=== PATIENT | male | born 1945 | race Caucasian/White ===

== ENCOUNTER 2017-04-15 15:01 | Emergency (ER) | payer MEDICARE, BC ==
--- NOTE | 2017-04-15 15:25 | Emergency Department Record ---
History of Present Illness - General Chief Complaint: Abdominal Pain Stated Complaint: PAIN IN LOWER ABD Time Seen by Provider: 04/15/17 15:20 Source: Patient Mode of Arrival: Ambulatory Limitations: No limitations - History of Present Illness Initial Comments: 71 yo male presents to ED with a CC of right inguinal pain for the past 1 month. Patient reports that his pain symptoms worsened today. Patient denies fevers, chills, or testicular swelling/pain symptoms. Patient reports recent partial colectomy for colon cancer, did not require chemo/radiation. MD Complaint: Abdominal pain Onset/Timin -: Month(s) Location: RLQ Radiation: None Quality: Aching, Sharp, Stabbing Consistency: Constant Improves With: Medication Worsens With: Movement Associated Symptoms: Denies other symptoms - Related Data Home Medications Medication Instructions Recorded Confirmed Last Taken Aspirin Chewable [Aspirin] 81 mg PO DAILY 05/30/14 04/15/17 04/14/17 Atenolol [Atenolol] 50 mg PO DAILY 05/30/14 04/15/17 04/14/17 Clopidogrel Bisulfate [Plavix] 75 mg PO DAILY 05/30/14 04/15/17 04/15/17 Fish Oil/Dha/Epa [Fish Oil 1,200 1,400 mg PO DAILY 05/30/14 04/15/17 04/15/17 mg Fish Oil] Fluoxetine HCl [Prozac] 20 mg PO DAILY 05/30/14 04/15/17 04/15/17 Lisinopril [Lisinopril] 20 mg PO DAILY 05/30/14 04/15/17 04/14/17 Metformin HCl [Glucophage] 500 mg PO BID 05/30/14 04/15/17 04/15/17 Pravastatin Sodium [Pravachol] 40 mg PO DAILY 05/30/14 04/15/17 04/14/17 Allergies Allergy/AdvReac Type Severity Reaction Status Date / Time cyclobenzaprine HCl Allergy Severe ANAPHYLAXIS Verified 08/28/15 18:10 [From Flexeril] Carbapenems Allergy Intermediate RASH Verified 08/28/15 18:10 Cephalosporins Allergy Intermediate RASH Verified 08/28/15 18:10 Penicillins Allergy Intermediate RASH Verified 08/28/15 18:10 Sulfa (Sulfonamide Allergy Intermediate RASH Verified 08/28/15 18:10 Antibiotics) sulfacetamide Allergy Intermediate RASH Verified 08/28/15 18:10 Travel Screening - Travel/Exposure Within Last 30 Days Have you traveled within the last 30 days?: No - Travel/Exposure Within Last Year Have you traveled outside the [place] in the last year?: No - Additonal Travel Details Have you been exposed to anyone with a communicable illness?: No Review of Systems Constitutional: Denies: Chills, Fever, Malaise, Night sweats Eyes: Denies: Eye discharge, Eye pain ENT: Denies: Congestion, Ear pain, Epistaxis Respiratory: Denies: Cough, Dyspnea Cardiovascular: Denies: Chest pain, Dyspnea on exertion Endocrine: Denies: Fatigue, Heat or cold intolerance Gastrointestinal: Reports: Abdominal pain. Denies: Nausea, Vomiting Genitourinary: Denies: Incontinence, Retention, Testicular pain, Testicular mass Musculoskeletal: Denies: Arthralgia, Back pain, Gout, Joint swelling Skin: Denies: Bruising, Change in color Neurological: Denies: Abnormal gait, Confusion, Headache Psychiatric: Denies: Anxiety Hematological/Lymphatic: Denies: Anemia, Blood Clots Past Medical History - SOCIAL HISTORY Smoking Status: Former smoker Alcohol Use: None Drug Use: None - RESPIRATORY Hx Respiratory Disorders: Yes - CARDIOVASCULAR Hx Cardio Disorders: Yes Hx Abnormal EKG: Yes Hx Cardiac Cath: Yes Hx Chest Pain: Yes Hx Heart Attack: Yes (2) Hx Hypertension: Yes Hx Palpitations: Yes Hx Vascular Disease: Yes Hx Coronary Stent: Yes (x 8, last stent 11/2016) Comment:: AAA 2000, high cholesterol - NEURO Hx Neuro Disorders: Yes 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) - GI Hx GI Disorders: Yes Hx GI Bleed: Yes Hx of Polyps: Yes Comment:: colon cancer 2015 - Hx Genitourinary Disorders: Yes Hx Kidney Stones: Yes - ENDOCRINE Hx Endocrine Disorders: Yes Hx Diabetes: Yes (Type II) Hx Thyroid Disease: No Comment:: Blindness occurred after multiple hernia repair sx; stroke to both eyes - MUSCULOSKELETAL Hx Musculoskeletal Disorders: Yes Hx Arthritis: Yes Hx Back Injury: Yes - PSYCH Hx Psych Problems: Yes Hx Anxiety: Yes - HEMATOLOGY/ONCOLOGY Hx Hematology/Oncology Disorders: Yes Hx Bruising: Yes (plavix) Hx Cancer: Yes Family Medical History Any Significant Family History?: No Hx Heart Disease: Brother/Sister *Heart Comment: lost 3 siblings due to aaa Physical Exam - General General Appearance: Alert, Oriented x3, Cooperative, Moderate distress Limitations: No limitations - Head Head exam: Atraumatic, Normocephalic, Normal inspection Head exam detail: negative: Abrasion, Contusion, Flor's sign, General tenderness, Hematoma, Laceration - Eye Eye exam: Normal appearance. negative: Conjunctival injection, Periorbital swelling, Periorbital tenderness, Scleral icterus - ENT Ear exam: negative: Auricular hematoma, Auricular trauma Nasal Exam: negative: Active bleeding, Discharge, Dried blood, Foreign body Mouth exam: negative: Drooling, Laceration, Muffled voice, Tongue elevation - Neck Neck exam: Normal inspection. negative: Meningismus, Tenderness - Respiratory Respiratory exam: Normal lung sounds bilaterally. negative: Respiratory distress, Rhonchi, Stridor, Wheezes - Cardiovascular Cardiovascular Exam: Regular rate, Normal rhythm, Normal heart sounds - GI/Abdominal GI/Abdominal exam: Soft, Tenderness (TTP to the right inguinal region on examination, no rebound, no guarding present). negative: Rebound, Rigid - Rectal Rectal exam: Deferred - exam: Deferred - Extremities Extremities exam: Normal inspection. negative: Pedal edema, Tenderness - Back Back exam: Denies: CVA tenderness (R), CVA tenderness (L) - Neurological Neurological exam: Alert, Oriented X3 - Psychiatric Psychiatric exam: Normal affect, Normal mood - Skin Skin exam: Normal color. negative: Abrasion Type of lesion: negative: abrasion Course Vital Signs 04/15/17 15:03 Temperature 98.4 F Pulse Rate 92 H Respiratory 20 Rate Blood Pressure 149/95 Pulse Ox 100 - Reevaluation(s) Reevaluation #1: 04/15/17 16:47 Labs reviewed and are grossly unremarkable for an acute process. Reevaluation #2: 04/15/17 17:01 CT Pelvis: Lipoma in the spermatic cord vs. small hernia sac in the right inguinal canal Patient and family were updated on all results, patient reports that he is pain- free at rest and takes Aleve for his symptoms, denies the need for further analgesia on examination. Patient reports that Dr. Hickman performed his cony- colectomy, will have the patient follow-up in the [facility] next Wednesday for further evaluation. Medical Decision Making - Lab Data Result diagrams: 04/15/17 15:28 04/15/17 15:28 Disposition Disposition: Discharge Clinical Impression: Inguinal hernia Qualifiers: Obstruction and gangrene presence: without obstruction or gangrene Laterality: unilateral Recurrence: not specified as recurrent Qualified Code(s): K40.90 - Unilateral inguinal hernia, without obstruction or gangrene, not specified as recurrent Disposition: Home, Self-Care Condition: (2) Stable Instructions: Inguinal Hernia (ED) Additional Instructions: Return to ED if your symptoms worsen or if you have any concerns. Follow-up with Dr. Hickman in the [facility] next Wednesday. Referrals: Low Hickman [DOCTOR OF OSTEOPATH] - [facility] [Provider Group] Forms: Patient Portal Access Time of Disposition: 17:04
[2017-04-15 15:35] LABS: BASO % 0.5 % (0-6); EOS % 1.8 % (0-6); GRAN % 63.1 % (47-80); HEMATOCRIT 37.4 % (42.0-52.0); HEMOGLOBIN 11.9 gm/dl (14.0-18.0); LYMPH % 25.5 % (16-45); MEAN CORPUSCULAR HEMOGLOBIN 29.8 pg (27-33); MEAN CORPUSCULAR HGB CONC 31.8 g/dl (32-36); MEAN PLATELET VOLUME 8.8 fl (7.4-10.4); MONO % 9.1 % (0-9); PLATELET COUNT 260 K/uL (130-400); RED BLOOD COUNT 3.98 M/uL (4.40-5.70); RED CELL DISTRIBUTION WIDTH 13.9 % (11.5-14.5); WHITE BLOOD COUNT W/O DIFF 5.6 K/uL (4.2-12.2)
[2017-04-15 15:51] LABS: LACTIC ACID 1.6 mmol/L (0.7-2.1)
[2017-04-15 16:10] LABS: BLOOD UREA NITROGEN 12 mg/dL (9-20); CREATININE 0.9 mg/dL (0.66-1.25); EST GLOMERULAR FILTRATION RATE > 60 ml/min; GLUCOSE,RANDOM 115 mg/dL (70-110)
[2017-04-15 16:12] LABS: ALB/GLOB RATIO 1.5 (1.1-1.8); ALBUMIN 4.3 gm/dL (3.5-5.0); ALKALINE PHOSPHATASE 85 U/L (38-126); ALT/SGPT 92 U/L (21-72); AST/SGOT 67 U/L (17-59); TOTAL PROTEIN 7.2 gm/dL (6.3-8.2)
--- NOTE | 2017-04-17 14:06 | CT SCAN REPORT ---
DATE: 04/15/2017 at 16:22. EXAM: CT SCAN OF THE PELVIS WITH CONTRAST. HISTORY: Right inguinal pain. TECHNIQUE: Contrast-enhanced helical CT examination of the pelvis is performed with 95 mL of Omnipaque 300 utilized. Oral contrast was not utilized. COMPARISON: CT of the abdomen and pelvis without and with contrast dated 2015. FINDINGS: The prostate gland is grossly normal in size. No intrinsic urinary bladder abnormality is seen. The distal ureters are not dilated. No definite intrapelvic mass nor adenopathy is seen. There is diffuse atherosclerosis redemonstrated. There is again noted mild dilatation of the right common iliac artery with eccentric thrombus present. This measures approximately 2.1 cm in maximum diameter, unchanged. There is again noted minor ulceration at this level, the pattern of which is unchanged. No gross dilatation or wall thickening are visualized. Bowel is seen, though evaluation is somewhat limited by lack of oral contrast utilization. There is suggestion of an enterocolic anastomosis in the right mid to upper abdomen. Postsurgical changes are suggested in the midline abdominal wall. There is mild fat density prominence within the right inguinal canal consistent with fat within a small inguinal hernia or a lipoma of the spermatic cord. No inflammatory changes are, however, demonstrated in this region. No new lytic or blastic bone lesion. Degenerative changes of the lower lumbar spine are redemonstrated. IMPRESSION: 1. MILD FAT DENSITY PROMINENCE IN THE RIGHT INGUINAL CANAL CONSISTENT WITH SPERMATIC CORD LIPOMA OR FAT WITHIN A SMALL INGUINAL HERNIA SAC. THERE IS NO ASSOCIATED FAT STRANDING OR ABNORMAL FLUID COLLECTION IN THIS REGION. 2. ENTEROCOLIC ANASTOMOSIS DEMONSTRATED IN THE RIGHT MID TO UPPER ABDOMEN APPEARING UNCOMPLICATED. 3. ATHEROSCLEROSIS. MILD ANEURYSMAL DILATATION OF THE RIGHT COMMON ILIAC ARTERY IS REDEMONSTRATED, NOT SIGNIFICANTLY CHANGED IN SIZE MEASURING 2.1 CM. MINOR PLAQUE ULCERATION AT THIS LEVEL APPEARS STABLE. JOB NUMBER: [id number] MTDD
== END 2017-04-15 17:14 | disposition home or self-care (01) ==
LOC: ER 15:01
DX: K40.90 Unilateral inguinal hernia, without obstruction or gangrene, not specified as recurrent (principal); R10.31 Right lower quadrant pain; Z85.038 Personal history of other malignant neoplasm of large intestine; Z87.442 Personal history of urinary calculi
CPT/HCPCS: 99283; 99284; 83605; 85025; 80053; 72193; Q9967

== ENCOUNTER 2017-04-26 10:29 | Day surgery (SDC) | payer MEDICARE, BC ==
[2017-04-26] MEDS ORDERED: LIDOCAINE 2% MDV (20MG/ML) 20ML VIAL IV ONE (14:00)
[2017-04-26] MEDS ORDERED: MIDAZOLAM HCL 2MG/2ML VIAL IV ONE (14:00)
[2017-04-26] MEDS ORDERED: PROPOFOL 10 MG/ML VIAL IV ONE (14:00)
--- NOTE | 2017-04-28 14:24 | Operative Note ---
DATE OF SURGERY: 04/26/2017 PREOPERATIVE DIAGNOSIS: See below. POSTOPERATIVE DIAGNOSIS: See below. OPERATION: COLONOSCOPY to the neoterminal ileum with biopsy. Indication: Recent history of adenocarcinoma involving the right colon. Patient is status post resection. He has been found to have ongoing anemia, which has been worsening of late, and the cause for this is being evaluated. He is also scheduled to have herniorrhaphy next week. Surveillance colonoscopy is being performed. Anesthesia: Intravenous sedation was administered by the Department of Anesthesiology and included Diprivan titrated to effect. PROCEDURE: Following informed consent from this alert individual, including a discussion of the risks and benefits of the procedure and an opportunity for the patient to ask questions, patient was placed in the left lateral decubitus position. A digital rectal examination was performed. No abnormalities were noted. Following this, the Olympus [id number] video colonoscope was inserted into the rectum without resistance. The rectal mucosa had a normal appearance, with normal folds and distensibility. Colonoscope was advanced up through the colon to the neoterminal ileum. There was anastomosis noted in the right colon, presumably in the distal ascending colon. The neoterminal ileum was endoscopically normal. The anastomotic site itself appeared normal as well. Approximately 10 cm from the anastomosis was an area of abnormal mucosa with inflammation and somewhat firm texture. The tissue was quite friable. Biopsies from the site were obtained, as there was some concern for malignancy. The area extended over at least 3 cm. From this point, the colonoscope was then further withdrawn. No additional abnormalities were detected. Retroflexion of the rectum was endoscopically unremarkable. Patient tolerated the procedure well. The colon preparation was good. IMPRESSION: Area of abnormal mucosa in the colon, approximating the level of the hepatic flexure, approximately 7 cm from the previous anastomosis, suspicious for possible malignancy; although, inflammation is also a consideration. The area was biopsied. The remainder of the colon and neoterminal ileum was unremarkable. RECOMMENDATIONS: Further recommendations will be forthcoming pending results of biopsy. I discussed my findings at this time with Dr. Hickman. As always, thank you for allowing me to participate in the care of your patient. CC: Marlys Gallagher M.D. Jeffrey Deppen, D.O. MTDD
== END 2017-04-26 17:17 | disposition home or self-care (01) ==
LOC: HOP 10:29
PROVIDERS: ATTEND Internal Medicine Gastroenterology
DX: C18.3 Malignant neoplasm of hepatic flexure (principal); E11.9 Type 2 diabetes mellitus without complications; Z79.84 Long term (current) use of oral hypoglycemic drugs; E78.00 Pure hypercholesterolemia, unspecified; I10 Essential (primary) hypertension; I69.898 Other sequelae of other cerebrovascular disease

== ENCOUNTER 2018-05-23 08:33 | Day surgery (SDC) | payer MEDICARE, BC ==
[2018-05-23] MEDS ORDERED: PROPOFOL 10 MG/ML VIAL IV ONE (08:34)
[2018-05-23] MEDS ORDERED: LIDOCAINE 2% MDV (20MG/ML) 20ML VIAL IV ONE (08:34)
--- NOTE | 2018-05-25 10:00 | Operative Note ---
DATE OF SURGERY: 05/23/2018 OPERATION: COLONOSCOPY to the terminal ileum with multiple biopsies. INDICATION: Prior history of colon carcinoma on 2 occasions, status post right colon resection. The patient returns at this time for surveillance. His last colonoscopy was in 2017. ANESTHESIA: Intravenous sedation was administered by the department of anesthesiology and included Diprivan titrated to effect. PROCEDURE: Following informed consent from this alert individual including a discussion of the risks and benefits of the procedure and an opportunity for the patient to ask questions, the patient was in the left lateral decubitus position. A digital rectal examination was performed. No abnormalities were noted. Following this, the Olympus [id number] video colonoscope was inserted into the rectum without resistance. The rectal mucosa had a normal appearance with normal folds and distensibility. The colonoscope was advanced up through the colon to the level of the small bowel anastomosis without difficulty. Throughout the bowel the mucosa appeared normal, the folds were normal, and the bowel was fairly well distensible. The colon preparation was good. The anastomotic site appeared to be healthy. There was end-to-side anastomosis with the terminal ileum. The terminal ileum was then cannulated and demonstrated some focal areas of erythema with edema and superficial erosions. Multiple biopsies were taken from the terminal ileum. From the anastomotic site, the colonoscope was then withdrawn. No mucosal abnormalities were detected. However, because of the patient's complaint of frequent diarrhea, random biopsies were taken from the remaining colon in a random fashion to evaluate for microscopic colitis although this seemed less likely clinically. The endoscope was then drawn back into the rectum where retroflexion was accomplished following air insufflation and failed to demonstrate changed. Retroflexion was also accomplished at the anastomotic site without abnormalities noted. The instrument was removed. The patient tolerated the procedure well and was returned to the recovery area in stable condition. IMPRESSION: 1. Status post right colon resection with healthy-appearing ileocolonic end-to-side anastomosis. 2. Mild ileitis with focal areas of edema, erythema, and superficial erosive change, biopsies taken. 3. Normal residual colon, random biopsies taken. RECOMMENDATIONS: Further recommendations will be forthcoming pending results of pathology obtained today. The patient can use Imodium on an as-needed basis at this time. I did recommend a recheck colonoscopy in 1 year's time for history of 2 separate adenocarcinomas of the colon. Followup will also be with Dr. Pike. As always, thank you for allowing me to participate in the care of your patient. CC: Dr. Shahzad Hickman, DO [facility]
== END 2018-05-23 10:27 | disposition home or self-care (01) ==
LOC: HOP 08:33
PROVIDERS: ATTEND Internal Medicine Gastroenterology
DX: Z09 Encounter for follow-up examination after completed treatment for conditions other than malignant neoplasm (principal); Z85.030 Personal history of malignant carcinoid tumor of large intestine; Z98.890 Other specified postprocedural states; K52.9 Noninfective gastroenteritis and colitis, unspecified; E78.00 Pure hypercholesterolemia, unspecified; E11.9 Type 2 diabetes mellitus without complications; I10 Essential (primary) hypertension

== ENCOUNTER 2018-07-23 18:00 | Emergency (ER) | payer MEDICARE, BC ==
--- NOTE | 2018-07-23 18:54 | Emergency Department Record ---
History of Present Illness - General Chief complaint: Pain Stated complaint: LT SHOULDER AND NECK PAIN Time Seen by Provider: 07/23/18 18:34 Source: Patient, Family Mode of Arrival: Ambulatory Limitations: No limitations - History of Present Illness Initial comments: pt has been having l shoulder pain for a week. he is unsure of the etiology. it is constant but gets worse w movement. it radiates up into his posterior neck. no cp, sob or nausea.. alleve makes it better MD Complaint: Extremity pain, Joint pain, Neck Pain Onset/Timin -: Week(s) Location: Left, Shoulder Severity scale (1-10): 2 Quality: Aching Consistency: Constant, Intermittent Improves with: Rest Worsens with: Exertion, Palpation Associated Symptoms: Denies other symptoms - Related Data Allergies Allergy/AdvReac Type Severity Reaction Status Date / Time cyclobenzaprine HCl Allergy Severe ANAPHYLAXIS Verified 07/23/18 18:12 [From Flexeril] Carbapenems Allergy Intermediate RASH Verified 07/23/18 18:12 Cephalosporins Allergy Intermediate RASH Verified 07/23/18 18:12 Penicillins Allergy Intermediate RASH Verified 07/23/18 18:12 Sulfa (Sulfonamide Allergy Intermediate RASH Verified 07/23/18 18:12 Antibiotics) sulfacetamide Allergy Intermediate RASH Verified 07/23/18 18:12 Travel Screening - Travel/Exposure Within Last 30 Days Have you traveled within the last 30 days?: No - Travel/Exposure Within Last Year Have you traveled outside the [place] in the last year?: No - Additonal Travel Details Have you been exposed to anyone with a communicable illness?: No - Travel Symptoms Symptom Screening: None Review of Systems Reviewed: No additional complaints except as noted below Constitutional: Reports: As per HPI. Denies: Chills, Fever, Malaise, Night sweats, Weakness, Weight change Eyes: Reports: As per HPI, Vision change. Denies: Eye discharge, Eye pain, Photophobia ENT: Reports: As per HPI. Denies: Congestion, Dental pain, Ear pain, Epistaxis , Hearing loss, Throat pain Respiratory: Reports: As per HPI. Denies: Cough, Dyspnea, Hemoptysis, Stridor, Wheezes Cardiovascular: Reports: As per HPI. Denies: Arrhythmia, Chest pain, Dyspnea on exertion, Edema, Murmurs, Orthopnea, Palpitations, Paroxysmal nocturnal dyspnea, Rheumatic Fever, Syncope Endocrine: Reports: As per HPI. Denies: Fatigue, Heat or cold intolerance, Polydipsia, Polyuria Gastrointestinal: Reports: As per HPI. Denies: Abdominal pain, Constipation, Diarrhea, Hematemesis, Hematochezia, Melena, Nausea, Vomiting Genitourinary: Reports: As per HPI. Denies: Dysuria, Frequency, Hematuria, Incontinence, Retention, Testicular pain, Testicular mass, Urgency Musculoskeletal: Reports: As per HPI, Myalgia, Neck pain. Denies: Arthralgia, Back pain, Gout, Joint swelling Skin: Reports: As per HPI. Denies: Bruising, Change in color, Change in hair/ nails, Lesions, Pruritus, Rash Neurological: Reports: As per HPI. Denies: Abnormal gait, Confusion, Headache, Numbness, Paresthesias, Seizure, Tingling, Tremors, Vertigo, Weakness Psychiatric: Reports: As per HPI. Denies: Anxiety, Auditory hallucinations, Depression, Homicidal thoughts, Suicidal thoughts, Visual hallucinations Hematological/Lymphatic: Reports: As per HPI. 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) Comment:: legally blind - GI Hx GI Disorders: Yes Hx GI Bleed: Yes Comment:: colon cancer 2016 - Hx Genitourinary Disorders: Yes Hx Kidney Stones: Yes - ENDOCRINE Hx Endocrine Disorders: Yes Hx Diabetes: Yes (Type II) - MUSCULOSKELETAL Hx Musculoskeletal Disorders: Yes Hx Arthritis: Yes Hx Back Injury: Yes - PSYCH Hx Psych Problems: Yes Hx Anxiety: Yes - HEMATOLOGY/ONCOLOGY Hx Hematology/Oncology Disorders: Yes Hx Cancer: Yes Family Medical History Any Significant Family History?: Yes Hx Heart Disease: Brother/Sister *Heart Comment: lost 3 siblings due to aaa Physical Exam - General General Appearance: Alert, Oriented x3, Cooperative, Mild distress - Head Head exam: Normal inspection - Eye Eye exam: Normal appearance, PERRL, EOMI Pupils: Normal accommodation - ENT ENT exam: Normal exam, Mucous membranes moist, Normal external ear exam, Normal orophraynx, TM's normal bilaterally Ear exam: Normal external inspection. negative: External canal tenderness Nasal Exam: Normal inspection. negative: Discharge, Sinus tenderness Mouth exam: Normal external inspection, Tongue normal Teeth exam: Normal inspection. negative: Dental caries Throat exam: Normal inspection. negative: Tonsillar erythema, Tonsillar exudate - Neck Neck exam: Normal inspection, Full ROM. negative: Tenderness - Respiratory Respiratory exam: Normal lung sounds bilaterally. negative: Respiratory distress - Cardiovascular Cardiovascular Exam: Regular rate, Normal rhythm, Normal heart sounds - GI/Abdominal GI/Abdominal exam: Soft, Normal bowel sounds. negative: Tenderness - Rectal Rectal exam: Deferred - exam: Deferred - Extremities Extremities exam: Normal capillary refill, Tenderness (l shoulder and trapezius and neck). negative: Full ROM (l shoulder) - Back Back exam: Reports: Normal inspection, Full ROM. Denies: Muscle spasm, Rash noted, Tenderness - Neurological Neurological exam: Alert, CN II-XII intact, Normal gait, Oriented X3 - Psychiatric Psychiatric exam: Normal affect, Normal mood - Skin Skin exam: Dry, Intact, Normal color, Warm Course Vital Signs 07/23/18 18:02 Temperature 98.2 F Pulse Rate 76 Respiratory 16 Rate Blood Pressure 152/85 Pulse Ox 96 Medical Decision Making - Lab Data Result diagrams: 07/23/18 18:55 07/23/18 18:55 Disposition Disposition: Discharge Clinical Impression: Rotator cuff (capsule) sprain Qualifiers: Encounter type: initial encounter Laterality: left Qualified Code(s): S43.422A - Sprain of left rotator cuff capsule, initial encounter Disposition: Home, Self-Care Condition: (1) Good Instructions: Rotator Cuff Tendinitis (ED) Additional Instructions: follow up with dr meadows on wednesday. return sooner if worse. motrin with food. moist heat Referrals: MJ MEADOWS [DOCTOR OF OSTEOPATH] - [facility] [Provider Group] Forms: Patient Portal Access Quality - Quality Measures Quality Measures: N/A - Blood Pressure Screening Does Patient Have Any of the Following: No Blood Pressure Classification: Pre-Hypertensive BP Reading Systolic Measurement: 152 Diastolic Measurement: 85 Screening for High Blood Pressure: < Pre-Hypertensive BP, F/U Documented > [ [id number]] Pre-Hypertensive Follow-up Interventions: Follow-up with rescreen every year.
[2018-07-23 19:03] LABS: BASO % 0.4 % (0-6); EOS % 2.8 % (0-6); GRAN % 61.3 % (47-80); HEMATOCRIT 49.6 % (42.0-52.0); MEAN CELL VOLUME 93.2 fl (81-97); MEAN CORPUSCULAR HGB CONC 34.3 g/dl (32-36); MEAN PLATELET VOLUME 9.5 fl (7.4-10.4); MONO % 8.5 % (0-9); PLATELET COUNT 189 K/uL (130-400); RED BLOOD COUNT 5.32 M/uL (4.40-5.70); RED CELL DISTRIBUTION WIDTH 13.8 % (11.5-14.5); WHITE BLOOD COUNT W/O DIFF 6.8 K/uL (4.2-12.2)
[2018-07-23 19:14] LABS: BLOOD UREA NITROGEN 13 mg/dL (8-23)
[2018-07-23 19:15] LABS: CREATININE 0.7 mg/dL (0.7-1.2); EST GLOMERULAR FILTRATION RATE > 60 mL/min
[2018-07-23 19:17] LABS: GLUCOSE,RANDOM 130 mg/dL (74-109)
[2018-07-23 19:20] LABS: CREATINE PHOSPHOKINASE 120 U/L (39-308)
[2018-07-23 19:22] LABS: CKMB 3.2 ng/mL (<6.73)
[2018-07-23 19:36] LABS: ERYTHROCYTE SEDIMENTATION RATE 7 mm/hr (0-20)
[2018-07-23] MEDS: KETOROLAC 30 MG/ML VIAL IVP ONE (20:26)
--- NOTE | 2018-07-23 21:07 | Emergency Department Record ---
History of Present Illness - General Chief complaint: Pain Stated complaint: LT SHOULDER AND NECK PAIN Time Seen by Provider: 07/23/18 18:34 Source: Patient, Family Mode of Arrival: Ambulatory Limitations: No limitations - History of Present Illness Onset/Timin -: Week(s) Location: Left, Shoulder Severity scale (1-10): 2 Quality: Aching Consistency: Constant, Intermittent Improves with: Rest Worsens with: Exertion, Palpation Associated Symptoms: Denies other symptoms - Related Data Previous Rx's Medication Instructions Recorded Lidocaine Patch [Lidoderm] 1 ea TOP ASDIR #5 patch 07/23/18 Allergies Allergy/AdvReac Type Severity Reaction Status Date / Time cyclobenzaprine HCl Allergy Severe ANAPHYLAXIS Verified 07/23/18 18:12 [From Flexeril] Carbapenems Allergy Intermediate RASH Verified 07/23/18 18:12 Cephalosporins Allergy Intermediate RASH Verified 07/23/18 18:12 Penicillins Allergy Intermediate RASH Verified 07/23/18 18:12 Sulfa (Sulfonamide Allergy Intermediate RASH Verified 07/23/18 18:12 Antibiotics) sulfacetamide Allergy Intermediate RASH Verified 07/23/18 18:12 Travel Screening - Travel/Exposure Within Last 30 Days Have you traveled within the last 30 days?: No - Travel/Exposure Within Last Year Have you traveled outside the [place] in the last year?: No - Additonal Travel Details Have you been exposed to anyone with a communicable illness?: No - Travel Symptoms Symptom Screening: None Review of Systems Constitutional: Reports: As per HPI. Denies: Chills, Fever, Malaise, Night sweats, Weakness, Weight change Eyes: Reports: As per HPI, Vision change. Denies: Eye discharge, Eye pain, Photophobia ENT: Reports: As per HPI. Denies: Congestion, Dental pain, Ear pain, Epistaxis , Hearing loss, Throat pain Respiratory: Reports: As per HPI. Denies: Cough, Dyspnea, Hemoptysis, Stridor, Wheezes Cardiovascular: Reports: As per HPI. Denies: Arrhythmia, Chest pain, Dyspnea on exertion, Edema, Murmurs, Orthopnea, Palpitations, Paroxysmal nocturnal dyspnea, Rheumatic Fever, Syncope Endocrine: Reports: As per HPI. Denies: Fatigue, Heat or cold intolerance, Polydipsia, Polyuria Gastrointestinal: Reports: As per HPI. Denies: Abdominal pain, Constipation, Diarrhea, Hematemesis, Hematochezia, Melena, Nausea, Vomiting Genitourinary: Reports: As per HPI. Denies: Dysuria, Frequency, Hematuria, Incontinence, Retention, Testicular pain, Testicular mass, Urgency Musculoskeletal: Reports: As per HPI, Myalgia, Neck pain. Denies: Arthralgia, Back pain, Gout, Joint swelling Skin: Reports: As per HPI. Denies: Bruising, Change in color, Change in hair/ nails, Lesions, Pruritus, Rash Neurological: Reports: As per HPI. Denies: Abnormal gait, Confusion, Headache, Numbness, Paresthesias, Seizure, Tingling, Tremors, Vertigo, Weakness Psychiatric: Reports: As per HPI. Denies: Anxiety, Auditory hallucinations, Depression, Homicidal thoughts, Suicidal thoughts, Visual hallucinations Hematological/Lymphatic: Reports: As per HPI. 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) Comment:: legally blind - GI Hx GI Disorders: Yes Hx GI Bleed: Yes Comment:: colon cancer 2016 - Hx Genitourinary Disorders: Yes Hx Kidney Stones: Yes - ENDOCRINE Hx Endocrine Disorders: Yes Hx Diabetes: Yes (Type II) - MUSCULOSKELETAL Hx Musculoskeletal Disorders: Yes Hx Arthritis: Yes Hx Back Injury: Yes - PSYCH Hx Psych Problems: Yes Hx Anxiety: Yes - HEMATOLOGY/ONCOLOGY Hx Hematology/Oncology Disorders: Yes Hx Cancer: Yes Family Medical History Any Significant Family History?: Yes Hx Heart Disease: Brother/Sister *Heart Comment: lost 3 siblings due to aaa Physical Exam - General Limitations: No limitations Course Vital Signs 07/23/18 07/23/18 18:02 20:51 Temperature 98.2 F Pulse Rate 76 Pulse Rate [ 74 Pulse Ox Probe] Respiratory 16 20 Rate Blood Pressure 152/85 Blood Pressure 131/85 [Left Arm] Pulse Ox 96 97 Medical Decision Making - Lab Data Result diagrams: 07/23/18 18:55 07/23/18 18:55 Lab Results 07/23/18 07/23/18 07/23/18 Range/Units 18:48 18:55 18:55 WBC 6.8 (4.2-12.2) K/uL RBC 5.32 (4.40-5.70) M/uL Hgb 17.0 (14.0-18.0) gm/dl Hct 49.6 (42.0-52.0) % MCV 93.2 (81-97) fl MCH 32.0 (27-33) pg MCHC 34.3 (32-36) g/dl RDW 13.8 (11.5-14.5) % Plt Count 189 (130-400) K/uL MPV 9.5 (7.4-10.4) fl Gran % 61.3 (47-80) % Lymphocytes % 27.0 (16-45) % Monocytes % 8.5 (0-9) % Eosinophils % 2.8 (0-6) % Basophils % 0.4 (0-6) % ESR 7 (0-20) mm/hr Sodium Cancelled 142 Potassium Cancelled 4.3 Chloride Cancelled 100 Carbon Dioxide Cancelled 27.0 Anion Gap Cancelled 15.0 BUN Cancelled 13 Creatinine Cancelled 0.7 Estimated GFR Cancelled > 60 Random Glucose Cancelled 130 H Calcium Cancelled 9.7 Creatine Kinase 120 (39-308) U/L CK-MB (CK-2) 3.2 (<6.73) ng/mL Troponin T < 0.010 (0-0.010) ng/mL Disposition Clinical Impression: Rotator cuff (capsule) sprain Qualifiers: Encounter type: initial encounter Laterality: left Qualified Code(s): S43.422A - Sprain of left rotator cuff capsule, initial encounter Disposition: Home, Self-Care Condition: (1) Good Instructions: Rotator Cuff Tendinitis (ED) Additional Instructions: follow up with dr meadows on wednesday. return sooner if worse. motrin with food. moist heat Prescriptions: Lidocaine Patch [Lidoderm] 1 ea TOP ASDIR #5 patch Referrals: [facility] [Provider Group] MJ MEADOWS [DOCTOR OF OSTEOPATH] - Forms: Patient Portal Access Quality - Quality Measures Quality Measures: N/A - Blood Pressure Screening Does Patient Have Any of the Following: No Blood Pressure Classification: Pre-Hypertensive BP Reading Systolic Measurement: 152 Diastolic Measurement: 85 Screening for High Blood Pressure: < Pre-Hypertensive BP, F/U Documented > [ [id number]] Pre-Hypertensive Follow-up Interventions: Follow-up with rescreen every year.
[2018-07-23] MEDS: LIDOCAINE 5% PATCH TOP ONE (21:09)
--- NOTE | 2018-07-27 09:18 | RADIOLOGY REPORT ---
EXAM: CHEST, TWO VIEWS HISTORY: PAIN. TECHNIQUE: PA and lateral views of the chest were obtained. Comparison: Two view chest 11/20/11. FINDINGS: Since the prior exam a dual lead pacemaker has been placed with one electrode lead in the region of the right atrium and the other in the region of the right ventricle. No pneumothorax evident. Mild torsion of the aorta. The heart size is normal. The lungs appear expanded with no acute infiltrate seen. Minor linear fibrosis or discoid atelectasis left mid lung laterally. Mild spurring in the mid to lower thoracic spine. No pleural effusion or pneumothorax evident. IMPRESSION: 1. PACEMAKER IN PLACE. 2. MILD SPURRING IN THE THORACIC SPINE. 3. NO ACUTE INFILTRATE EVIDENT. JOB NUMBER: [id number] MTDD
--- NOTE | 2018-07-27 09:40 | RADIOLOGY REPORT ---
EXAM: LEFT SHOULDER HISTORY: LEFT SHOULDER PAIN AFTER USING AN ELLIPTICAL ONE WEEK AGO. TECHNIQUE: Three views of the left shoulder were obtained. Comparison: No prior left shoulder series. Encounter: Initial. FINDINGS: Mild degenerative arthritic at the glenohumeral joint. Minor spurring at the acromioclavicular joint. No fracture or dislocation of the left shoulder evident. IMPRESSION: SOME DEGENERATIVE CHANGES NOTED ABOVE. NO FRACTURE OF THE LEFT SHOULDER EVIDENT. JOB NUMBER: [id number] MTDD
--- NOTE | 2018-07-27 09:44 | RADIOLOGY REPORT ---
EXAM: CERVICAL SPINE, AP AND LATERAL VIEWS HISTORY: PAIN IN THE NECK AFTER USING AN ELLIPTICAL ONE WEEK AGO. TECHNIQUE: AP and lateral views only of the cervical spine were obtained. No oblique views were obtained. Comparison: No prior cervical study. Encounter: Initial. FINDINGS: There is narrowing of the third, fifth and sixth cervical interspaces with associated hypertrophic spurring. Degenerative change at the odontoid-anterior arch of C1 articulation as well. Some ligamentous calcification posteriorly in the neck. No prevertebral soft tissue swelling is evident. Some facet joint arthropathy is seen in the cervical spine. Minor cervical thoracic curve convexed to the left. IMPRESSION: 1. MULTILEVEL DEGENERATIVE CHANGE IN THE CERVICAL SPINE. 2. NO DEFINITE FRACTURE OR PREVERTEBRAL SOFT TISSUE SWELLING IDENTIFIED ON THE LIMITED AP AND LATERAL VIEW. JOB NUMBER: [id number] MTDD
== END 2018-07-23 21:11 | disposition home or self-care (01) ==
LOC: ER 18:00
DX: S43.422A Sprain of left rotator cuff capsule, initial encounter (principal); M54.2 Cervicalgia; E11.9 Type 2 diabetes mellitus without complications; I10 Essential (primary) hypertension; I25.2 Old myocardial infarction; Z87.891 Personal history of nicotine dependence; X50.9XXA Other and unspecified overexertion or strenuous movements or postures, initial encounter; Y93.A1 Activity, exercise machines primarily for cardiorespiratory conditioning
CPT/HCPCS: 71046; 72040; 80048; 82550; 82553; 84484; 85025; 85651; 93005; 93010; 96374; 99284; J1885

== ENCOUNTER 2019-06-26 08:05 | Day surgery (SDC) | payer MEDICARE, BC ==
[2019-06-26] MEDS ORDERED: PROPOFOL 10 MG/ML VIAL IV ONE (08:06)
[2019-06-26] MEDS ORDERED: LIDOCAINE 2% MDV (20MG/ML) 20ML VIAL IV ONE (08:06)
--- NOTE | 2019-06-27 10:30 | Operative Note ---
OPERATION: COLONOSCOPY to the neoterminal ileum with biopsy and cold snare polypectomy x1. INDICATION: History of colon carcinoma. The patient is status post right colon resection. His last colonoscopy 1 year ago demonstrated some mild ileitis with small superficial ulcerations noted in the ileum. Colonoscopy is repeated at this time for surveillance. Clinically, he does well with episodes of diarrhea. He might have normal stools some days and other days have 4-5 loose stools. ANESTHESIA: Intravenous sedation was administered by the department of anesthesiology and included Diprivan titrated to effect. PROCEDURE: Following informed consent from this alert individual including a discussion of the risks and benefits of the procedure and an opportunity for the patient to ask questions, the patient was in the left lateral decubitus position. A digital rectal examination was performed. No abnormalities were noted. Following this, the Olympus [id number] video colonoscope was inserted into the rectum without resistance. The rectal mucosa had a normal appearance with normal folds and distensibility. The colonoscope was advanced up through the bowel to the level of the small bowel anastomosis in the proximal transverse colon. Throughout the bowel the mucosa appeared normal, the folds were normal, and the bowel was fairly well distensible. There was a diminutive 4 mm polyp noted at the most distal rectum which was initially traversed. The anastomosis was well defined and appeared to be healthy. The neoterminal ileum was cannulated and demonstrated multiple small superficial ulcerations noted between normal-appearing mucosa. Multiple biopsies of the ileum were obtained. From this point, the colonoscope was then withdrawn. No colonic abnormalities were detected until the rectum was reached. At the most distal rectum, a diminutive 4 mm polyp was noted and removed with cold snare polypectomy in total. Retroflexion in the rectum was otherwise unremarkable. The endoscope was removed. The patient tolerated the procedure well and was returned to the recovery area in stable condition. IMPRESSION: 1. Multiple superficial small ulcerations noted in the neoterminal ileum, biopsies taken. 2. Status post right colon resection with healthy appearing anastomosis. 3. A 4 mm distal rectal polyp removed with cold snare polypectomy. RECOMMENDATIONS: Further recommendations will be forthcoming pending results of pathology obtained today. I would recommend a repeat colonoscopy in 3 years' time pending the pathology results and progress. Followup will also with be with Dr. Hill. As always, thank you for allowing me to participate in the care of your patient. FIDENCIO
== END 2019-06-26 09:55 | disposition home or self-care (01) ==
LOC: HOP 08:05
PROVIDERS: ATTEND Internal Medicine Gastroenterology
DX: Z09 Encounter for follow-up examination after completed treatment for conditions other than malignant neoplasm (principal); Z85.038 Personal history of other malignant neoplasm of large intestine; Z90.49 Acquired absence of other specified parts of digestive tract; K62.1 Rectal polyp; K63.3 Ulcer of intestine; E11.9 Type 2 diabetes mellitus without complications; I10 Essential (primary) hypertension; E78.00 Pure hypercholesterolemia, unspecified

== ENCOUNTER 2019-08-12 14:23 | Inpatient (IN) | payer MEDICARE, BC ==
--- NOTE | 2019-08-12 15:07 | Emergency Department Record ---
History of Present Illness - General Chief complaint: Vomiting blood Stated complaint: VOMITTING,BLOOD/BLOODY STOOL Time Seen by Provider: 08/12/19 14:57 Source: Patient, RN notes reviewed Mode of Arrival: Ambulatory - History of Present Illness Initial comments: vomiting for three days and it was bad and three days ago and than today vomited times two. use aleve and advil and he had 8 cardiac stents and pacemaker and uses plavix and asa too. Colonoscopy done one monthago and that looks good history of colon cancer and had two previous resection of colon one year and 6 months prior to that. No chemo or radiation therapy. Next colonoscopy 3 years. [facility] aortic anuryism 2002 repaired. [address] Franco in [place]. patient has left sided abdominal pain MD complaint: Blood on toilet paper, Gross hematemesis Onset/Timin -: Week(s) Radiation: Epigastric Severity scale (1-10): 5 Quality: Sharp Consistency: Intermittent Improves with: Medication Worsens with: None Context: Other Associated Symptoms: Fever/chills Treatments Prior to Arrival: OTC meds - Related Data Home Medications Medication Instructions Recorded Confirmed Last Taken Naproxen Sodium [Aleve] 220 mg PO DAILY 08/12/19 08/12/19 08/12/19 Allergies Allergy/AdvReac Type Severity Reaction Status Date / Time cyclobenzaprine HCl Allergy Severe ANAPHYLAXIS Verified 08/12/19 14:39 [From Flexeril] Carbapenems Allergy Intermediate RASH Verified 08/12/19 14:39 Cephalosporins Allergy Intermediate RASH Verified 08/12/19 14:39 Penicillins Allergy Intermediate RASH Verified 08/12/19 14:39 Sulfa (Sulfonamide Allergy Intermediate RASH Verified 08/12/19 14:39 Antibiotics) sulfacetamide Allergy Intermediate RASH Verified 08/12/19 14:39 Travel Screening - Travel/Exposure Within Last 30 Days Have you traveled within the last 30 days?: No - Travel/Exposure Within Last Year Have you traveled outside the [place] in the last year?: No - Additonal Travel Details Have you been exposed to anyone with a communicable illness?: No - Travel Symptoms Symptom Screening: None Review of Systems Reviewed: No additional complaints except as noted below Constitutional: Reports: As per HPI. Denies: Chills, Fever, Malaise, Night sweats, Weakness, Weight change Eyes: Reports: As per HPI. Denies: Eye discharge, Eye pain, Photophobia, Vision change ENT: Reports: As per HPI. Denies: Congestion, Dental pain, Ear pain, Epistaxis, Hearing loss, Throat pain Respiratory: Reports: As per HPI. Denies: Cough, Dyspnea, Hemoptysis, Stridor, Wheezes Cardiovascular: Reports: As per HPI. Denies: Arrhythmia, Chest pain, Dyspnea on exertion, Edema, Murmurs, Orthopnea, Palpitations, Paroxysmal nocturnal dyspnea, Rheumatic Fever, Syncope Endocrine: Reports: As per HPI. Denies: Fatigue, Heat or cold intolerance, Polydipsia, Polyuria Gastrointestinal: Reports: As per HPI. Denies: Abdominal pain, Constipation, Diarrhea, Hematemesis, Hematochezia, Melena, Nausea, Vomiting Genitourinary: Reports: As per HPI. Denies: Dysuria, Frequency, Hematuria, Incontinence, Retention, Testicular pain, Testicular mass, Urgency Musculoskeletal: Reports: As per HPI. Denies: Arthralgia, Back pain, Gout, Joint swelling, Myalgia, Neck pain Skin: Reports: As per HPI. Denies: Bruising, Change in color, Change in hair/nails, Lesions, Pruritus, Rash Neurological: Reports: As per HPI. Denies: Abnormal gait, Confusion, Headache, Numbness, Paresthesias, Seizure, Tingling, Tremors, Vertigo, Weakness Psychiatric: Reports: As per HPI. Denies: Anxiety, Auditory hallucinations, Depression, Homicidal thoughts, Suicidal thoughts, Visual hallucinations Hematological/Lymphatic: Reports: As per HPI. 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) Comment:: legally blind - GI Hx GI Disorders: Yes Hx GI Bleed: Yes Hx of Polyps: Yes Comment:: colon cancer 2016 - Hx Genitourinary Disorders: Yes Hx Kidney Stones: Yes - ENDOCRINE Hx Endocrine Disorders: Yes Hx Diabetes: Yes (pre) - MUSCULOSKELETAL Hx Musculoskeletal Disorders: Yes Hx Arthritis: Yes Hx Back Injury: Yes - PSYCH Hx Psych Problems: Yes Hx Anxiety: Yes - HEMATOLOGY/ONCOLOGY Hx Hematology/Oncology Disorders: Yes Hx Cancer: Yes Family Medical History Any Significant Family History?: Yes Hx Heart Disease: Brother/Sister *Heart Comment: lost 3 siblings due to aaa Physical Exam - General General Appearance: Alert, Oriented x3, Cooperative, No acute distress - Head Head exam: Normal inspection - Eye Eye exam: Normal appearance, PERRL Pupils: Normal accommodation - ENT ENT exam: Normal exam, Mucous membranes moist, Normal external ear exam, Normal orophraynx, TM's normal bilaterally Ear exam: Normal external inspection. negative: External canal tenderness Nasal Exam: Normal inspection. negative: Discharge, Sinus tenderness Mouth exam: Normal external inspection, Tongue normal Teeth exam: Normal inspection. negative: Dental caries Throat exam: Normal inspection. negative: Tonsillar erythema, Tonsillar exudate - Neck Neck exam: Normal inspection, Full ROM. negative: Tenderness - Respiratory Respiratory exam: Normal lung sounds bilaterally. negative: Respiratory distre ss - Cardiovascular Cardiovascular Exam: Regular rate, Normal rhythm, Normal heart sounds - GI/Abdominal GI/Abdominal exam: Soft, Normal bowel sounds. negative: Tenderness - Rectal Rectal exam: Deferred - exam: Deferred - Extremities Extremities exam: Normal inspection, Full ROM, Normal capillary refill. negative: Tenderness - Back Back exam: Reports: Normal inspection, Full ROM. Denies: Muscle spasm, Rash noted, Tenderness - Neurological Neurological exam: Alert, Normal gait, Oriented X3, Reflexes normal - Psychiatric Psychiatric exam: Normal affect, Normal mood - Skin Skin exam: Dry, Intact, Normal color, Warm Course Vital Signs 08/12/19 14:43 Temperature 99.2 F Pulse Rate 87 Respiratory 20 Rate Blood Pressure 158/92 Pulse Ox 96 - Reevaluation(s) Reevaluation #1: Discussed case with Bernadette Day and will admit to Dr Cuevas 08/12/19 18:14 Reevaluation #2: patient made aware of the plan and will ADMIT AT [facility] 08/12/19 18:16 Medical Decision Making - Data Complexity MDM Data: Labs Ordered and/or Reviewed (hg 17.4), X-Ray Ordered and/or Reviewed (CTA of abd and pelvis negative) - Lab Data Result diagrams: 08/12/19 14:10 08/12/19 14:10 Disposition Clinical Impression: GI bleed Qualifiers: GI bleed type/associated pathology: unspecified gastrointestinal hemorrhage type Qualified Code(s): K92.2 - Gastrointestinal hemorrhage, unspecified Decision to Admit: Admit from ER Condition: (2) Stable Instructions: Gastrointestinal Bleeding (ED) Forms: Patient Portal Access Time of Disposition: 17:50 Quality - Quality Measures Quality Measures: N/A - Blood Pressure Screening Does Patient Have Any of the Following: No, Active Dx of HTN Blood Pressure Classification: Hypertensive Reading Systolic Measurement: 158 Diastolic Measurement: 92 Screening for High Blood Pressure: Patient Exclusion, Hx of HTN [G9744]
[2019-08-12 15:14] LABS: ABSOLUTE NEUTROPHIL COUNT 6.81; BASO % 0.3 % (0-6); EOS % 0.3 % (0-6); GRAN % 79.2 % (47-80); HEMATOCRIT 50.4 % (42.0-52.0); HEMOGLOBIN 17.4 gm/dl (14.0-18.0); LYMPH % 12.7 % (16-45); MEAN CORPUSCULAR HEMOGLOBIN 31.8 pg (27-33); MEAN CORPUSCULAR HGB CONC 34.5 g/dl (32-36); MEAN PLATELET VOLUME 9.5 fl (7.4-10.4); MONO % 7.5 % (0-9); PLATELET COUNT 210 K/uL (130-400); RED BLOOD COUNT 5.48 M/uL (4.40-5.70); RED CELL DISTRIBUTION WIDTH 14.3 % (11.5-14.5); WHITE BLOOD COUNT W/O DIFF 8.6 K/uL (4.2-12.2)
[2019-08-12 15:26] LABS: BLOOD UREA NITROGEN 13 mg/dL (8-23); CREATININE 0.7 mg/dL (0.7-1.2); EST GLOMERULAR FILTRATION RATE > 60 mL/min; INR 1.1; PARTIAL THROMBOPLASTIN TIME 26.4 SECONDS (24.5-39.1); PROTHROMBIN TIME (PATIENT) 10.8 SECONDS (9.5-12.1)
[2019-08-12 15:27] LABS: LIPASE 21 U/L (13-60); TOTAL PROTEIN 7.7 g/dL (6.6-8.7)
[2019-08-12] MEDS: 0.9 % SODIUM CHLORIDE 1000ML 1,000 ML IV ONE ×2 (15:28→21:30)
[2019-08-12 15:29] LABS: GLUCOSE,RANDOM 155 mg/dL (74-109)
[2019-08-12 15:31] LABS: ALT/SGPT 78 U/L (<41)
[2019-08-12 15:32] LABS: ALBUMIN 4.9 g/dL (4.0-5.0); ALKALINE PHOSPHATASE 84 U/L (40-129); AST/SGOT 63 U/L (10.0-50.0); BILIRUBIN,DIRECT < 0.2 mg/dL (0-0.3)
--- NOTE | 2019-08-12 16:40 | CT ANGIOGRAM REPORT ---
EXAMINATION: CTA of the Abdomen and Pelvis EXAMINATION DATE: 08/12/2019 4:20 PM TECHNIQUE: Standard protocol CTA imaging of the abdomen and pelvis was performed without and with int ravenous contrast. Postprocessing was performed creating 2D coronal maximal intensity projection (MIP ) images and 3D images. IV Contrast: The amount and type of contrast are recorded in the medical record. INDICATION: GI bleed ,history of aortic anuryism repair 2003 COMPARISON: 02/20/2019 ENCOUNTER: Initial FINDINGS: 1. Abdominal Aorta: Postsurgical changes without evidence for aneurysm or dissection 2. Celiac Artery: Normal caliber. No significant stenosis. 3. SMA: Normal caliber. No significant stenosis. 4. 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 5. Right Renal Artery: Normal caliber. No significant stenosis. 6. Left Renal Artery: Normal caliber. No significant stenosis. 7. 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 Left Iliac arteries: No significant stenosis is present. ABDOMINAL AND PELVIC FINDINGS: Lung Bases: Included extent of the lung bases are clear. Hepatobiliary: The liver has a normal size with a smooth surface. The hepatic and portal veins appear patent. Small nonobstructing stones layering in the gallbladder. No gallbladder wall thickening. No biliary dilatation. Pancreas: The pancreas is normal. Spleen: The spleen is not enlarged. Adrenals: The adrenal glands are normal. Gastrointestinal: The stomach and small bowel are normal with no obstruction or inflammation. Prior r ight hemicolectomy, the remaining large bowel is unremarkable. Reproductive Organs: Unremarkable Lymphatic System: There is no adenopathy within the abdomen or pelvis. Peritoneum: No free fluid, free air, or inflammation IMPRESSION: 1. No acute abdominal pathology. No acute inflammatory process. 2. No evidence for abdominal aortic dissection. Postsurgical changes of the abdominal aorta without c omplication. 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 Dictated by: Itz Granados MD on 08/12/2019 4:28 PM. .
[2019-08-12 16:57] LABS: URINE APPEARANCE CLEAR; URINE BILIRUBIN NEGATIVE (NEGATIVE); URINE BLOOD NEGATIVE (NEGATIVE); URINE COLOR YELLOW; URINE GLUCOSE (UA) NEGATIVE (NEGATIVE); URINE KETONE TRACE (NEGATIVE); URINE LEUKOCYTE ESTERASE NEGATIVE (NEGATIVE); URINE NITRITE NEGATIVE (NEGATIVE); URINE PROTEIN NEGATIVE (NEGATIVE); URINE UROBILINOGEN 0.2 E.U./dL (0.20 - 1.00)
[2019-08-12] MEDS ORDERED: ACETAMINOPHEN 325 MG TAB PO PRN (18:36)
[2019-08-12] MEDS ORDERED: 0.9 % SODIUM CHLORIDE 1000ML 1,000 ML IV ONE (18:36)
[2019-08-12] MEDS ORDERED: FLU VAC QS 2019-20 (INPT, 6MO+) 60MCG/0.5ML IM ONE (18:50)
[2019-08-12] MEDS: SIMVASTATIN 20 MG TABLET PO SCH (21:28)
[2019-08-12 22:09] LABS: HEMATOCRIT 46.3 % (42.0-52.0); HEMOGLOBIN 15.4 gm/dl (14.0-18.0)
[2019-08-13 06:31] LABS: BASO % 0.3 % (0-6); EOS % 1.1 % (0-6); GRAN % 70.7 % (47-80); HEMATOCRIT 45.2 % (42.0-52.0); HEMOGLOBIN 14.9 gm/dl (14.0-18.0); LYMPH % 19.4 % (16-45); MEAN CELL VOLUME 94.4 fl (81-97); MEAN CORPUSCULAR HEMOGLOBIN 31.1 pg (27-33); MEAN PLATELET VOLUME 9.2 fl (7.4-10.4); MONO % 8.5 % (0-9); PLATELET COUNT 155 K/uL (130-400); RED BLOOD COUNT 4.79 M/uL (4.40-5.70); RED CELL DISTRIBUTION WIDTH 14.1 % (11.5-14.5); WHITE BLOOD COUNT W/O DIFF 6.1 K/uL (4.2-12.2)
[2019-08-13] MEDS ORDERED: PNEUM 13-VAL/PF 0.5 ML IM ONE (08:54)
[2019-08-13] MEDS: ONDANSETRON HCL IV 4 MG/2 ML VIAL IVP PRN (08:58)
[2019-08-13] MEDS: PANTOPRAZOLE SODIUM IV 40 MG VIAL IVP SCH ×2 (09:02→19:51)
[2019-08-13] MEDS: METFORMIN 500 MG TABLET PO SCH (09:38)
[2019-08-13] MEDS: ATENOLOL 50 MG TABLET PO SCH (09:38)
[2019-08-13] MEDS: FLUOXETINE HCL 20 MG CAPSULE PO SCH (09:38)
[2019-08-13] MEDS ORDERED: LISINOPRIL 10 MG TABLET PO SCH (10:00)
[2019-08-13] MEDS: 0.9 % SODIUM CHLORIDE 1000ML 1,000 ML IV PRN ×2 (10:36→23:37)
--- NOTE | 2019-08-13 11:02 | History & Physical ---
History of Present Illness - Date of Service Date of Service for History & Physical: 08/13/19 - History of Present Illness Admitting Diagnosis: GI bleed History of Present Illness: 73 year old male patient presented to ED for evaluation of blood in his emesis. Patient reports symptoms of abdominal pain and nausea with eating for the past 2 weeks. Patient reports also noting intermittent liquid stools for the past month. 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 Patient has a significant GI history including colon cancer with resection x 2. Patient reports his last colonoscopy with Dr. Mathews was 1 month ago, which was negative. Patient is currently on Plavix and ASA due to having 8 cardiac stents and a PPM. Patient also reports using Aleve prn for generalized pain. Patient's past medical history also significant for an NM with stents, high cholesterol, eye CVA with resulting blindness, and a PPM. PCP: Dr. Bradshaw of [place] [facility]: Dr. Mathews ED Course: Hgb 17.4 Stool occult positive UA: negative Abd/pelvic CT: no acute or inflammatory process; no evidence for abdominal aortic dissection, postsurgical changes of abdominal aorta without complication 08/13/19: Patient A&O x 4, resting in bed. Patient reports increasing abdominal pain and nausea with advancement of a soft diet this morning. No vomiting or bloody stools since admission. Will resume clear liquid diet as tolerated, NPO at midnight for GI consult tomorrow. Continue serial hemoglobins. Travel Screening - Travel/Exposure Within Last 30 Days Have you traveled within the last 30 days?: No - Travel/Exposure Within Last Year Have you traveled outside the [place] in the last year?: No - Additonal Travel Details Have you been exposed to anyone with a communicable illness?: No - Travel Symptoms Symptom Screening: None Review of Systems Reviewed: No additional complaints except as noted below Constitutional: Reports: As per HPI. Denies: Chills, Fever, Malaise, Night sweats, Weakness, Weight change Eyes: Reports: As per HPI. Denies: Eye discharge, Eye pain, Photophobia, Vision change ENT: Reports: As per HPI. Denies: Congestion, Dental pain, Ear pain, Epistaxis, Hearing loss, Throat pain Respiratory: Reports: As per HPI. Denies: Cough, Dyspnea, Hemoptysis, Stridor, Wheezes Cardiovascular: Reports: As per HPI. Denies: Arrhythmia, Chest pain, Dyspnea on exertion, Edema, Murmurs, Orthopnea, Palpitations, Paroxysmal nocturnal dyspnea, Rheumatic Fever, Syncope Endocrine: Reports: As per HPI. Denies: Fatigue, Heat or cold intolerance, Polydipsia, Polyuria Gastrointestinal: Reports: As per HPI, Abdominal pain, Nausea, Vomiting. Denies: Constipation, Diarrhea, Hematemesis, Hematochezia, Melena Genitourinary: Reports: As per HPI. Denies: Dysuria, Frequency, Hematuria, Incontinence, Retention, Testicular pain, Testicular mass, Urgency Musculoskeletal: Reports: As per HPI. Denies: Arthralgia, Back pain, Gout, Joint swelling, Myalgia, Neck pain Skin: Reports: As per HPI. Denies: Bruising, Change in color, Change in hair/nails, Lesions, Pruritus, Rash Neurological: Reports: As per HPI. Denies: Abnormal gait, Confusion, Headache, Numbness, Paresthesias, Seizure, Tingling, Tremors, Vertigo, Weakness Psychiatric: Reports: As per HPI. Denies: Anxiety, Auditory hallucinations, Depression, Homicidal thoughts, Suicidal thoughts, Visual hallucinations Hematological/Lymphatic: Reports: As per HPI. 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) Comment:: legally blind - GI Hx GI Disorders: Yes Hx GI Bleed: Yes Hx of Polyps: Yes Comment:: colon cancer 2016 - Hx Genitourinary Disorders: Yes Hx Kidney Stones: Yes - ENDOCRINE Hx Endocrine Disorders: Yes Hx Diabetes: Yes (pre) - MUSCULOSKELETAL Hx Musculoskeletal Disorders: Yes Hx Arthritis: Yes Hx Back Injury: Yes - PSYCH Hx Psych Problems: Yes Hx Anxiety: Yes - HEMATOLOGY/ONCOLOGY Hx Hematology/Oncology Disorders: Yes Hx Cancer: Yes Family Medical History Any Significant Family History?: Yes Hx Heart Disease: Brother/Sister *Heart Comment: lost 3 siblings due to aaa H&P Meds/Allergies - Allergies Allergies: Allergies Allergy/AdvReac Type Severity Reaction Status Date / Time cyclobenzaprine HCl Allergy Severe ANAPHYLAXIS Verified 08/12/19 14:39 [From Flexeril] Carbapenems Allergy Intermediate RASH Verified 08/12/19 14:39 Cephalosporins Allergy Intermediate RASH Verified 08/12/19 14:39 Penicillins Allergy Intermediate RASH Verified 08/12/19 14:39 Sulfa (Sulfonamide Allergy Intermediate RASH Verified 08/12/19 14:39 Antibiotics) sulfacetamide Allergy Intermediate RASH Verified 08/12/19 14:39 - Home Medications Home Medications Medication Instructions Recorded Confirmed Last Taken Naproxen Sodium [Aleve] 220 mg PO DAILY 08/12/19 08/12/19 08/12/19 - Active Medications Active Medications: Current Medications Acetaminophen (Tylenol 325mg) 650 mg PO Q6H PRN PRN Reason: PAIN - MILD(1-4)/FEVER Atenolol (Tenormin) 50 mg PO DAILY [facility] Last Admin: 08/13/19 09:38 Dose: 50 mg Documented by: Fluoxetine HCl (Prozac) 20 mg PO DAILY [facility] Last Admin: 08/13/19 09:38 Dose: 20 mg Documented by: Sodium Chloride () 1,000 mls @ 75 mls/hr IV .[id number] PRN PRN Reason: LARGE VOLUME IV Last Admin: 08/13/19 10:36 Dose: 75 mls/hr Documented by: Lisinopril (Zestril) 20 mg PO DAILY [facility] Last Admin: 08/13/19 09:38 Dose: 20 mg Documented by: Metformin HCl (Glucophage Ir) 500 mg PO DAILY [facility] Last Admin: 08/13/19 09:38 Dose: 500 mg Documented by: Ondansetron HCl (Zofran) 4 mg IVP Q6H PRN PRN Reason: NAUSEA Last Admin: 08/13/19 08:58 Dose: 4 mg Documented by: Pantoprazole Sodium (Protonix Iv) 40 mg IVP Q12H [facility] Last Admin: 08/13/19 09:02 Dose: 40 mg Documented by: Simvastatin (Zocor) 20 mg PO QHS [facility] Last Admin: 08/12/19 21:28 Dose: 20 mg Documented by: Physical Exam - Vital Signs Vital Signs: Vital Signs - Last 24 Hrs Temp Pulse Pulse Resp BP BP Pulse Ox 08/13/19 07:34 98.5 F 70 16 139/75 96 08/13/19 04:00 98.7 F 67 16 141/76 94 L 08/12/19 21:00 16 08/12/19 20:36 98.5 F 78 16 122/72 96 08/12/19 18:36 97.7 F 77 16 151/89 99 08/12/19 18:15 78 18 144/93 98 08/12/19 17:02 78 18 152/91 97 08/12/19 14:43 99.2 F 87 20 158/92 96 - General General Appearance: Alert, Oriented x3, Cooperative, No acute distress - Head Head exam: Normal inspection - Eye Eye exam: Normal appearance, PERRL Pupils: Normal accommodation - ENT ENT exam: Normal exam, Mucous membranes moist, Normal external ear exam, Normal orophraynx Ear exam: Normal external inspection. negative: External canal tenderness Nasal Exam: Normal inspection. negative: Discharge, Sinus tenderness Mouth exam: Normal external inspection Teeth exam: negative: Dental caries Throat exam: negative: Tonsillar erythema, Tonsillar exudate - Neck Neck exam: Normal inspection, Full ROM. negative: Tenderness - Respiratory Respiratory exam: Normal lung sounds bilaterally. negative: Respiratory distress - Cardiovascular Cardiovascular Exam: Regular rate, Normal rhythm, Normal heart sounds Peripheral Pulses: 2+: Radial (R), Radial (L), Dorsalis Pedis (R), Dorsalis Pedis (L) - GI/Abdominal GI/Abdominal exam: Soft, Normal bowel sounds, Hernia, Tenderness (generalized tenderness with palpation) - Rectal Rectal exam: Deferred - exam: Deferred - Extremities Extremities exam: Normal inspection, Full ROM, Normal capillary refill. negative: Tenderness - Back Back exam: Reports: Normal inspection, Full ROM. Denies: Muscle spasm, Rash noted, Tenderness - Neurological Neurological exam: Alert, Normal gait, Oriented X3 - Psychiatric Psychiatric exam: Normal affect, Normal mood - Skin Skin exam: Dry, Intact, Normal color, Warm Results - Labs Result Diagrams: 08/13/19 06:05 08/12/19 14:10 Labs Last 24 Hours: Laboratory Results - last 24 hr 08/12/19 08/12/19 08/12/19 14:10 14:10 14:10 WBC 8.6 RBC 5.48 Hgb 17.4 Hct 50.4 MCV 92.0 MCH 31.8 MCHC 34.5 RDW 14.3 Plt Count 210 MPV 9.5 Gran % 79.2 Lymphocytes % 12.7 L Monocytes % 7.5 Eosinophils % 0.3 Basophils % 0.3 Absolute Neutrophils 6.81 PT 10.8 INR 1.1 APTT 26.4 Sodium 142 Potassium 3.8 Chloride 102 Carbon Dioxide 24.0 Anion Gap 16.0 BUN 13 Creatinine 0.7 Estimated GFR > 60 POC Glucose Random Glucose 155 H Calcium 10.0 Total Bilirubin 0.80 Direct Bilirubin < 0.2 AST 63 H ALT 78 H Alkaline Phosphatase 84 Total Protein 7.7 Albumin 4.9 Lipase 21 Urine Color Urine Appearance Urine pH Ur Specific Tracy Urine Protein Urine Glucose (UA) Urine Ketones Urine Blood Urine Nitrite Urine Bilirubin Urine Urobilinogen Ur Leukocyte Esterase Stool Occult Blood 08/12/19 08/12/19 08/12/19 16:09 16:55 22:00 WBC RBC Hgb 15.4 Hct 46.3 MCV MCH MCHC RDW Plt Count MPV Gran % Lymphocytes % Monocytes % Eosinophils % Basophils % Absolute Neutrophils PT INR APTT Sodium Potassium Chloride Carbon Dioxide Anion Gap BUN Creatinine Estimated GFR POC Glucose Random Glucose Calcium Total Bilirubin Direct Bilirubin AST ALT Alkaline Phosphatase Total Protein Albumin Lipase Urine Color Yellow Urine Appearance Clear Urine pH 5.5 Ur Specific Tracy 1.020 Urine Protein Negative Urine Glucose (UA) Negative Urine Ketones Trace H Urine Blood Negative Urine Nitrite Negative Urine Bilirubin Negative Urine Urobilinogen 0.2 Ur Leukocyte Esterase Negative Stool Occult Blood Positive H 08/13/19 08/13/19 08/13/19 06:00 06:05 07:19 WBC 6.1 RBC 4.79 Hgb Cancelled 14.9 Hct Cancelled 45.2 MCV 94.4 MCH 31.1 MCHC 33.0 RDW 14.1 Plt Count 155 MPV 9.2 Gran % 70.7 Lymphocytes % 19.4 Monocytes % 8.5 Eosinophils % 1.1 Basophils % 0.3 Absolute Neutrophils 4.30 PT INR APTT Sodium Potassium Chloride Carbon Dioxide Anion Gap BUN Creatinine Estimated GFR POC Glucose 112 H Random Glucose Calcium Total Bilirubin Direct Bilirubin AST ALT Alkaline Phosphatase Total Protein Albumin Lipase Urine Color Urine Appearance Urine pH Ur Specific Tracy Urine Protein Urine Glucose (UA) Urine Ketones Urine Blood Urine Nitrite Urine Bilirubin Urine Urobilinogen Ur Leukocyte Esterase Stool Occult Blood - Imaging and Cardiology CT scan - abdomen Status: Report reviewed VTE H&P Assessment - Risk for VTE Risk for VTE: Yes Risk Level: Moderate Risk Assessment Date: 08/13/19 Risk Assessment Time: 11:03 VTE Orders Placed or Will Be Placed: No VTE Reason for No Prophylaxis: Contraindicated (GI bleed) Plan - Inpatient Certification Inpatient Certification: Admit to inpatient care: Based on my medical assessment, after consideration of patient's risk factors (age, co-morbidities and patient presenting symptoms and acuity), I expect that this patient will remain in the hospital greater than or equal to two midnights and that the services needed warrant inpatient care because: Patient Risk Factors: [age, GI bleed, hospitalization] Estimated length of stay: The patient may reasonably be expected to be discha rged or transferred to a hospital within 24-72 hours after admission to [facility]. Services needed: [IV fluids, serial lab monitoring, PPI therapy, GI consult] Post hospital care (if known): [] I certify that my determination is in accordance with my understanding of Medicare requirements for reasonable and necessary inpatient services. 08/13/19 11:03 - Detailed Diagnosis and Plan (1) GI bleed Current Visit: Yes Status: Acute Qualifiers: GI bleed type/associated pathology: unspecified gastrointestinal hemorrhage type Qualified Code(s): K92.2 - Gastrointestinal hemorrhage, unspecified Base Code: K92.2 - GASTROINTESTINAL HEMORRHAGE, UNSPECIFIED Comment: 08/13/19: -Patient reports vomiting blood and liquid stools -Significant GI history of colon cancer x 2 with resection. Last colonoscopy 1 month ago with no acute findings. -Stool occult positive in ED -Serial Hgb 17.4, 15.4, 14.9 -Abd/pelvic CT: no acute findings, no acute inflammation -IV fluids 0.9%NS @ 75ml/hr -Clear liquids, NPO at midnight -Protonix 40mg IVP q12h -Holding ASA and Plavix at this time -GI consult (2) DVT prophylaxis Current Visit: Yes Status: Acute Base Code: Z29.9 - ENCOUNTER FOR PROPHYLACTIC MEASURES, UNSPECIFIED Comment: 08/13/19: -Moderate risk due to age and hospitalization -Prophylaxis contraindicated due to GI bleed -Nursing to encourage ambulation within the room (3) Full code status Current Visit: Yes Status: Acute Base Code: Z78.9 - OTHER SPECIFIED HEALTH STATUS Comment: 08/13/19: -Patient is a full code
[2019-08-13 18:07] LABS: HEMATOCRIT 46.9 % (42.0-52.0); HEMOGLOBIN 15.8 gm/dl (14.0-18.0)
[2019-08-13] MEDS: SIMVASTATIN 20 MG TABLET PO SCH (21:08)
[2019-08-14 06:49] LABS: ABSOLUTE NEUTROPHIL COUNT 4.68; BASO % 0.3 % (0-6); EOS % 0.8 % (0-6); GRAN % 76.4 % (47-80); HEMATOCRIT 45.4 % (42.0-52.0); LYMPH % 12.7 % (16-45); MEAN CELL VOLUME 94.6 fl (81-97); MEAN CORPUSCULAR HEMOGLOBIN 31.3 pg (27-33); MEAN PLATELET VOLUME 9.1 fl (7.4-10.4); MONO % 9.8 % (0-9); PLATELET COUNT 151 K/uL (130-400); WHITE BLOOD COUNT W/O DIFF 6.1 K/uL (4.2-12.2)
[2019-08-14 07:02] LABS: BLOOD UREA NITROGEN 7 mg/dL (8-23); CREATININE 0.7 mg/dL (0.7-1.2); EST GLOMERULAR FILTRATION RATE > 60 mL/min; GLUCOSE,RANDOM 122 mg/dL (74-109)
[2019-08-14] MEDS: PANTOPRAZOLE SODIUM IV 40 MG VIAL IVP SCH (07:56)
[2019-08-14] MEDS ORDERED: LISINOPRIL 20 MG TABLET PO SCH (10:00)
[2019-08-14] MEDS: ONDANSETRON HCL IV 4 MG/2 ML VIAL IVP PRN (13:51)
[2019-08-14] MEDS: METFORMIN 500 MG TABLET PO SCH (13:54)
[2019-08-14] MEDS: FLUOXETINE HCL 20 MG CAPSULE PO SCH (13:55)
[2019-08-14] MEDS: ATENOLOL 50 MG TABLET PO SCH (13:55)
--- NOTE | 2019-08-14 14:51 | Discharge Summary ---
Providers Discharge Summary Date: 08/14/19 Date of admission: 08/12/19 18:16 Expected Date of Discharge: 08/14/19 Attending physician: CLARISSA SHAH Primary care physician: ROZINA VALENTIN M.D. Consults: Consult Orders 08/13/19 10:39 Consult NOW Consulting Provider: TACHO BUTLER Physician Instructions: Reason For Exam: GI bleed Physical Exam - Vital Signs Vital Signs: Vital Signs - Last 24 Hrs Temp Pulse Resp BP Pulse Ox 08/14/19 13:25 99.0 F 66 16 132/63 95 08/14/19 08:01 97.7 F 65 16 127/82 98 08/14/19 06:15 98.1 F 79 16 125/66 100 08/14/19 00:55 97.7 F 93 H 16 131/88 99 08/13/19 21:00 16 08/13/19 19:58 97.9 F 61 16 135/80 98 08/13/19 16:00 98.1 F 63 16 122/75 97 - General General Appearance: Alert, Oriented x3, Cooperative, No acute distress - Head Head exam: Normal inspection - Eye Eye exam: Normal appearance, PERRL Pupils: Normal accommodation - ENT ENT exam: Normal exam, Mucous membranes moist, Normal external ear exam, Normal orophraynx Ear exam: Normal external inspection. negative: External canal tenderness Nasal Exam: Normal inspection. negative: Discharge, Sinus tenderness Mouth exam: Normal external inspection Teeth exam: negative: Dental caries Throat exam: negative: Tonsillar erythema, Tonsillar exudate - Neck Neck exam: Normal inspection, Full ROM. negative: Tenderness - Respiratory Respiratory exam: Normal lung sounds bilaterally. negative: Respiratory distress - Cardiovascular Cardiovascular Exam: Regular rate, Normal rhythm, Normal heart sounds Peripheral Pulses: 2+: Radial (R), Radial (L), Dorsalis Pedis (R), Dorsalis Pedis (L) - GI/Abdominal GI/Abdominal exam: Soft, Normal bowel sounds, Tenderness (mild upper abdominal tenderness with palpation) - Rectal Rectal exam: Deferred - exam: Deferred - Extremities Extremities exam: Normal inspection, Full ROM, Normal capillary refill. negative: Tenderness - Back Back exam: Reports: Normal inspection, Full ROM. 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 Last colonoscopy 1 month ago with no acute findings. -Stool occult positive in ED -Serial Hgb 17.4, 15.4, 14.9, 15.0 -Abd/pelvic CT: no acute findings, no acute inflammation -IV fluids 0.9%NS @ 75ml/hr -Tolerating PO liquids and soft diet -Protonix 40mg IVP q12h, switch to PO on discharge -GI consult with EGD: duodenitis with esophageal spasms. No source of bleeding noted. Follow-up outpt prn -Restart ASA and Plavix due to no bleeding (2) DVT prophylaxis Status: Acute Base Code: Z29.9 - ENCOUNTER FOR PROPHYLACTIC MEASURES, UNSPECIFIED Comment: 08/14/19: -Moderate risk due to age and hospitalization -Prophylaxis contraindicated due to GI bleed -Nursing to encourage ambulation within the room, resume normal activity on discharge (3) Full code status Status: Acute Base Code: Z78.9 - OTHER SPECIFIED HEALTH STATUS Comment: 08/14/19: -Patient is a full code - Hospitalization Course Disposition: Home, Self-Care Hospital Course: 73 year old male patient presented to ED for evaluation of blood in his emesis. Patient reports symptoms of abdominal pain and nausea with eating for the past 2 weeks. Patient reports also noting intermittent liquid stools for the past month. 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 Patient has a significant GI history including colon cancer with resection x 2. Patient reports his last colonoscopy with Dr. Butler was 1 month ago, which was negative. Patient is currently on Plavix and ASA due to having 8 cardiac stents and a PPM. Patient also reports using Aleve prn for generalized pain. Patient's past medical history also significant for an AL with stents, high cholesterol, eye CVA with resulting blindness, and a PPM. PCP: Dr. Bradshaw of [place] [facility]: Dr. Butler ED Course: Hgb 17.4 Stool occult positive UA: negative Abd/pelvic CT: no acute or inflammatory process; no evidence for abdominal aortic dissection, postsurgical changes of abdominal aorta without complication 08/13/19: Patient A&O x 4, resting in bed. Patient reports increasing abdominal pain and nausea with advancement of a soft diet this morning. No vomiting or bloody stools since admission. Will resume clear liquid diet as tolerated, NPO at midnight for GI consult tomorrow. Continue serial hemoglobins. 08/14/19: Patient A&O x 4, sitting comfortably in chair. EGD this morning which indicated duodenitis and esophageal spasms. Continue Protonix 40mg BID and advance diet as tolerated. Hemoglobin stable. Procedures: Imaging and X-Rays 08/12/19 15:28 ABDOMEN/PELVIS CTA [CTA] Stat Abnormal Labs: Abnormal Lab Results 08/12/19 08/12/19 08/12/19 Range/Units 14:10 14:10 16:09 Lymphocytes % 12.7 L (16-45) % Monocytes % (0-9) % BUN (8-23) mg/dL POC Glucose (70-110) mg/dL Random Glucose 155 H (74-109) mg/dL AST 63 H (10.0-50.0) U/L ALT 78 H (<41) U/L Urine Ketones (NEGATIVE) Stool Occult Blood Positive H (NEGATIVE) 08/12/19 08/13/19 08/14/19 Range/Units 16:55 07:19 06:17 Lymphocytes % 12.7 L (16-45) % Monocytes % 9.8 H (0-9) % BUN (8-23) mg/dL POC Glucose 112 H (70-110) mg/dL Random Glucose (74-109) mg/dL AST (10.0-50.0) U/L ALT (<41) U/L Urine Ketones Trace H (NEGATIVE) Stool Occult Blood (NEGATIVE) 08/14/19 Range/Units 06:17 Lymphocytes % (16-45) % Monocytes % (0-9) % BUN 7 L (8-23) mg/dL POC Glucose (70-110) mg/dL Random Glucose 122 H (74-109) mg/dL AST (10.0-50.0) U/L ALT (<41) U/L Urine Ketones (NEGATIVE) Stool Occult Blood (NEGATIVE) Condition at Discharge: (2) Stable Discharge Medications - Discharge Medications Prescriptions: Pantoprazole Sodium [Protonix] 40 mg PO BID #60 tab. Ondansetron HCl [Zofran] 4 mg PO Q6H PRN #20 tablet PRN Reason: Nausea Home Medications: Ambulatory Orders Aspirin Chewable 81 mg PO DAILY 05/30/14 [Last Taken 08/12/19] Atenolol 50 mg PO DAILY 05/30/14 [Last Taken 08/12/19] Clopidogrel Bisulfate [Plavix] 75 mg PO DAILY 05/30/14 [Last Taken 08/12/19] Fish Oil/Dha/Epa [Fish Oil 1,200 mg Fish Oil] 1,400 mg PO DAILY 05/30/14 [Last Taken 08/12/19] Fluoxetine HCl [Prozac] 20 mg PO DAILY 05/30/14 [Last Taken 08/12/19] Lisinopril 20 mg PO DAILY 05/30/14 [Last Taken 08/12/19] Metformin HCl [Glucophage Ir] 500 mg PO DAILY 05/30/14 [Last Taken 08/12/19] Pravastatin Sodium [Pravachol] 40 mg PO DAILY 05/30/14 [Last Taken 08/12/19] Naproxen Sodium [Aleve] 220 mg PO DAILY 08/12/19 [Last Taken 08/12/19] Ondansetron HCl [Zofran] 4 mg PO Q6H PRN #20 tablet 08/14/19 [Last Taken Unknown] Pantoprazole Sodium [Protonix] 40 mg PO BID #60 08/14/19 [Last Taken Unknown] Discharge Plan - Discharge Instructions Activity at Discharge: Increase Activity as Tolerated Diet at Discharge: Advance to Usual Diet Instructions: Gastrointestinal Bleeding (ED) Additional Instructions: Activity: Increase Activity as Tolerated Diet: Advance to Usual Diet Consults: Make an appointment with Dr. Hick[facility] [phone] Follow Up: Follow-up with PCP in 10-14 days Additional: -Start taking Protonix twice a day, your next dose is due tonight -Take Zofran as needed for nausea Quality Measures - Quality Measures Quality Measures: Advance Directives, Documentation of Current Medications in Medical Record, Elder Maltreatment Screen and Follow-Up Plan, Screening for High Blood Pressure and F/U Documented - Current Medications Quality Measure: Measure #130: Documentation of Current Medications Documentation of Current Medications: <Current Medications Documented/Reviewed> [[id number]] - Blood Pressure Screening Quality Measure: Screening for High Blood Pressure and Follow-Up Documented Does Patient Have Any of the Following: Active Dx of HTN Blood Pressure Classification: Hypertensive Reading Systolic Measurement: 144 Diastolic Measurement: 93 Screening for High Blood Pressure: Patient Exclusion, Hx of HTN [[id number]] - Advance Directives Quality Measure: Measure #47: Care Plan Advance Directives Established: No Advance Directives Information Provided To Patient: No Advance Directives on File: No Living Will: No 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 Advance Care Planning: <Care Plan/Decision Maker Documented; Discussed & Documented> [2325F] - Elder Abuse Suspicion Index Screening: Elder Abuse Suspicion Index Screening Rely on people for bathing, dressing, shopping, banking, etc: No Prevented from getting food, clothes, medication, etc: No Made to feel shamed or threatened by someone: No Forced to sign papers or use money against will: No Feel afraid, touched in ways not wanted or hurt physically: No Poor eye contact, withdrawn, malnourished, cuts or bruises: No Screening Result: Negative result EASI Reference Information: Tylor SEARS, Marybeth C, Barney D, Dg Sheets.Development and validation of a tool to assist physicians identification of elder abuse: The Elder Abuse Suspicion Index (EASI ). Journal of Elder Abuse and Neglect, 2008; 20 (3): 276-300. - Elder Maltreatment Screen Quality Measures: Elder Maltreatment Screen and Follow-Up Plan Elder Maltreatment Screen: <Negative, No Follow-Up Plan Required> [[id number]]
[2019-08-14] MEDS ORDERED: PROPOFOL 10 MG/ML VIAL IV ONE (15:36)
[2019-08-14] MEDS ORDERED: LIDOCAINE 2% MDV (20MG/ML) 20ML VIAL IV ONE (15:36)
--- NOTE | 2019-08-15 08:10 | Operative Note ---
OPERATION: ESOPHAGOGASTRODUODENOSCOPY with biopsy. INDICATION: Recent episode of hematemesis. The patient has had recurrent episodes of "dry heaves" and vomiting associated with frequent nausea and upper abdominal pain. Upper endoscopy is completed at this time for further evaluation. He is taking Plavix. ANESTHESIA: Intravenous sedation was administered by the department of anesthesiology and included Diprivan titrated to effect. PROCEDURE: Following informed consent from this alert individual, including a discussion of the risks and benefits of the procedure and an opportunity for the patient to ask questions, the patient was in the left lateral decubitus position. The Olympus [id number] video endoscope was inserted into the esophagus without resistance. The proximal esophagus had a normal appearance with normal folds and distensibility. The mid esophagus was free from changes. The distal esophageal segment demonstrated marked degree of esophageal spasm precluding advancement of the endoscope initially. When the spasm broke, the endoscope could be passed to the gastroesophageal junction, which appeared to be normal endoscopically. The stomach was then entered. The gastric fundus and pars media had a normal appearance with normal folds and distensibility. The antrum evaluated circumferentially was normal. The pylorus was patent. The duodenal bulb was endoscopically unremarkable; however, the second portion of the duodenum demonstrated focal areas of edema with erythema perhaps representing duodenitis although polyps can also be included in the possibility, and for this reason, multiple biopsies were taken. After biopsy, endoscope was drawn back into the stomach where retroflexion accomplished following air insufflation failed to demonstrate any changes. The endoscope was then withdrawn. No additional changes were noted. The patient tolerated the procedure well and was returned to the recovery area in stable condition. IMPRESSION: 1. Duodenitis with possibility of duodenal polyps. Biopsies taken. 2. Stomach was endoscopically normal. 3. Esophagus demonstrated marked degree of spasm involving the distal segment. RECOMMENDATION: The patient will continue on acid blockade. He is not vomiting since here in the hospital. His hemoglobin has been stable in the 15 g range. His BUN has been normal as well. Further recommendations will be forthcoming pending results of pathology. I will restart his diet at this time. As always, thank you for allowing me to participate in the care of your patient. FIDENCIO
--- NOTE | 2019-08-15 08:10 | Medical Records Consult ---
DATE OF CONSULTATION: 08/14/2019 REASON FOR CONSULTATION: The patient is a very pleasant 73-year-old gentleman well known to me from previous evaluations who presented to the hospital with complaints of possible hematemesis. He states that for at least a month or so, he has been suffering with abdominal bloating with distention and intermittent episodes of nausea with episodic vomiting. He states the last episode of vomiting was approximately 2 days ago and he thought perhaps he saw some blood. He is clinically blind and was unsure if there was actually blood in the stool but this was confirmed by his prior to this admission, apparently. He has had 2 previous episodes of colon cancer requiring colon resection. He had a colonoscopy completed 1 month ago which was unremarkable for any new abnormalities. The patient has been taking Plavix and aspirin, as he suffers with coronary artery disease and has a total of [address] and a pacemaker as well. He does take Aleve usually once or twice daily. 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 Previous surgeries as mentioned above include 2 colon resections for history of colon cancer. His last colonoscopy was 1 month ago without significant disease noted. He has had a previous ileocolonic anastomosis. REVIEW OF SYSTEMS: Noted on the medical record completed by Dr. Cuevas was reviewed, and I agree with his report. PAST MEDICAL HISTORY: As outlined above. He is a previous smoker as well. HOME MEDICATIONS: 1. Aleve. 2. Acetaminophen as needed. 3. Atenolol. 4. Fluoxetine. 5. Lisinopril. 6. Metformin. 7. Zofran. 8. Pantoprazole. 9. Simvastatin. PHYSICAL EXAMINATION: GENERAL: At this time, he is alert and oriented. His vision is impaired. NECK: Supple. HEART: Regular. LUNGS: Clear. ABDOMEN: Distended but soft. There is no rebound, rigidity, or guarding. There is generalized tenderness noted with moderate palpation. EXTREMITIES: Free from edema. NEUROMUSCULAR: Seems to be grossly unremarkable. LABORATORY DATA: On 08/13/2019, hemoglobin 14.9, hematocrit 45.2, white blood cell count 6.1, platelets 455,000, BUN 13, creatinine 0.7. Recheck hemoglobins have been stable at approximately 15 g with, as mentioned, no further vomiting or rectal bleeding. IMPRESSION AND PLAN: 1. History of possible hematemesis per patient's , as the patient is blind. The cause for this is unclear. Upper endoscopy will be arranged. 2. He has a prior history of colon cancer with 2 previous bowel resections with his last colonoscopy approximately 1 month ago which was fairly unremarkable. I would continue with PPI at this time and further recommendations will be forthcoming pending results of endoscopy. His complaint of abdominal bloating and gas he feels is related to his previous surgeries with "cutting through the mesh." He can follow up with Dr. Hickman in this regard. If his symptoms should persist or worsen, perhaps upper GI small bowel follow-through x-ray may prove beneficial. Thank you for allowing me to participate in his care. FIDENCIO
== END 2019-08-14 16:25 | disposition home or self-care (01) | DRG 379 ==
LOC: ER 14:23 → MEDSURG 18:16
PROVIDERS: ADMIT Internal Medicine; ATTEND Internal Medicine
PROC: 0DB98ZX Excision of Duodenum, Via Natural or Artificial Opening Endoscopic, Diagnostic (ICD-10-PCS; principal; 2019-08-12)
DX: K92.2 Gastrointestinal hemorrhage, unspecified (principal); R19.5 Other fecal abnormalities; R10.9 Unspecified abdominal pain; I10 Essential (primary) hypertension; E78.00 Pure hypercholesterolemia, unspecified; E11.9 Type 2 diabetes mellitus without complications; I25.2 Old myocardial infarction; F17.210 Nicotine dependence, cigarettes, uncomplicated; Z95.5 Presence of coronary angioplasty implant and graft; Z98.61 Coronary angioplasty status; Z95.0 Presence of cardiac pacemaker; H54.8 Legal blindness, as defined in USA; Z85.038 Personal history of other malignant neoplasm of large intestine; Z86.73 Personal history of transient ischemic attack (TIA), and cerebral infarction without residual deficits; Z87.442 Personal history of urinary calculi; Z23 Encounter for immunization; Z87.19 Personal history of other diseases of the digestive system; K92.0 Hematemesis; R11.2 Nausea with vomiting, unspecified; K29.80 Duodenitis without bleeding; K22.4 Dyskinesia of esophagus
CPT/HCPCS: 36416; 74174; 80048; 80076; 81003; 82272; 82948; 83690; 85014; 85018; 85025; 85610; 85730; 90670; 90686; 99223; 99239; 99285; C9113; J2405